=== PATIENT | male | born 1985 | race Two or more races ===

== ENCOUNTER 2020-06-27 15:19 | Emergency (ER) | payer OTHER ==
[~2020-06-27] VITALS: Ht 175.3 cm; Wt 101.5 kg
--- NOTE | 2020-06-27 15:58 | NUR ---
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
[2020-06-27] MEDS ORDERED: DIPH,PERTUSS(ACELL),TET VAC/PF 0.5 ML IM-VACC ONE ×2 (16:00→16:29)
[2020-06-27] MEDS ORDERED: LIDOCAINE 1%-EPI 1:100K, 20ML ONE (16:51)
--- NOTE | 2020-06-27 16:57 | NUR ---
PERFECTO IN ROOM REMOVING NEEDLE, GOT JOSE GILMORE FOR PROCEDURE.
[2020-06-27] MEDS ORDERED: LIDOCAINE 1%-EPI 1:100K, 20ML SQ ONE (17:00)
[2020-06-27 17:33] VITALS: BP 113/84
--- NOTE | 2020-06-27 17:34 | NUR ---
PATIENT WOUND WAS IRRAGATED AND DRESSED. PATIENT EDUCATED ON WOUND CARE.
== END 2020-06-27 17:41 | disposition home or self-care (01) ==
LOC: ED 17:20
DX: S71.141A Puncture wound with foreign body, right thigh, initial encounter (principal); X58.XXXA Exposure to other specified factors, initial encounter; Y93.89 Activity, other specified; Y92.69 Other specified industrial and construction area as the place of occurrence of the external cause; Y99.0 Civilian activity done for income or pay
CPT/HCPCS: 10120; 90471; 90715; 99285